=== PATIENT | male | born 1995 | race African-American/Black ===

== ENCOUNTER 2017-11-08 22:50 | Emergency (ER) | payer SELFPAY ==
--- NOTE | 2017-11-09 00:08 | ER Document Report ---
HPI - HPI Patient complains to provider of: Headaches Pain Level: 5 Context: Patient is a 22-year-old male that comes emergency department for chief complaint of a headache. He states that his blood pressures have been running high as well. He states he had a headache earlier, took ibuprofen, fell asleep , and then was brought back to the room. He states now his headache is gone. Denies any current symptoms including chest pain. Denies any symptoms other than light sensitivity with headache, states it felt like a throbbing headache. He states recently he was seen at [facility] for the same thing, states his blood pressure was very elevated then, when asked he states his blood pressure has been elevated greater than 150-160s on multiple occasions every time and is checked. High blood pressure runs in the family including 2 family members who are on dialysis. He denies any difficulty with urination. He has never been on a blood pressure medication. He takes no daily medications. He denies smoking, alcohol use, recreational drugs. Past Medical History - General Information source: Patient - Social History Smoking Status: Never Smoker Frequency of alcohol use: None Drug Abuse: None Lives with: Alone Family History: Hypertension, Other - End-stage renal disease - Past Medical History Cardiac Medical History: Reports: Hx Hypertension Surgical Hx: Negative - Immunizations Immunizations up to date: Yes Hx Diphtheria, Pertussis, Tetanus Vaccination: Yes Vertical Provider Document - CONSTITUTIONAL General Appearance: WD/WN, No Apparent Distress - INFECTION CONTROL TRAVEL OUTSIDE OF THE [place] IN LAST 30 DAYS: No - HEENT HEENT: Atraumatic, Normal ENT Exam, Normocephalic - NECK Neck: Normal Inspection - RESPIRATORY Respiratory: Breath Sounds Normal, No Respiratory Distress - CARDIOVASCULAR Cardiovascular: Regular Rate, Regular Rhythm - GI/ABDOMEN Gastrointestinal: Abdomen Soft, Abdomen Non-Tender - BACK Back: Normal Inspection - MUSCULOSKELETAL/EXTREMETIES Musculoskeletal/Extremeties: MAEW, FROM, Non-Tender - NEURO Level of Consciousness: Awake, Alert, Appropriate Motor/Sensory: No Motor Deficit, No Sensory Deficit - DERM Integumentary: Warm, Dry, No Rash Course - Re-evaluation Re-evalutation: Because of patient's reported multiple instances of elevated blood pressure readings even when he is asymptomatic along with family history of dialysis, patient will be started on blood pressure medications and referred to primary care. He is asymptomatic with his blood pressure at this time, low suspicion of any intracranial abnormality or acute abnormality otherwise. Discussed in detail with patient, he states understanding and agreement with plan. - Vital Signs Vital signs: Temp Pulse Resp BP Pulse Ox 98.2 F 87 18 181/116 H 98 11/08/17 22:55 11/08/17 22:55 11/08/17 22:55 11/08/17 22:55 11/08/17 22:55 Discharge - Discharge Clinical Impression: Frequent headaches, Uncontrolled hypertension Condition: Stable Disposition: HOME, SELF-CARE Additional Instructions: Because of your symptoms and your frequent checked uncontrolled blood pressure readings along with your family history we are starting him on amlodipine 5 mg daily as a hypertension medication. Take as prescribed, please follow-up with the primary care referral closely for additional management including dose adjustments in additional evaluation. Return if you worsen including severe headache, vomiting, or any other concerning or worsening symptoms. Prescriptions: Amlodipine Besylate 5 mg PO DAILY #30 tab Referrals: [facility] [place] [Provider Group] - Follow up as needed PRINCESS PÉREZ MD [ACTIVE STAFF] - 11/15/17
[2017-11-09 00:37] VITALS: BP 149/93
== END 2017-11-09 00:37 | disposition home or self-care (01) ==
LOC: ER 22:50
DX: R51 Headache (principal); I10 Essential (primary) hypertension
CPT/HCPCS: 99283